=== PATIENT | male | born 2000 | race Caucasian/White ===

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

== ENCOUNTER 2020-08-24 06:12 | Day surgery (SDC) | payer OTHER ==
[2020-08-22 14:02] VITALS: BMI 24.9
[2020-08-24] MEDS ORDERED: BUPIVACAINE HCL 50 ML ONE (06:56)
[2020-08-24] MEDS ORDERED: BUPIVACAINE LIPOSOME/PF (EXPAREL) 266 MG/20 ML VIAL ONE (06:56)
[2020-08-24] MEDS ORDERED: MIDAZOLAM HCL 2 MG/2 ML SINGLE DOSE VIAL ONE ×2 (06:56→07:15)
[2020-08-24] MEDS ORDERED: PROPOFOL 20 ML ONE (07:15)
[2020-08-24] MEDS ORDERED: EPINEPHrine 1:1,000 1 MG/1 ML - 30ML VIAL (INJECTION) ONE (07:23)
[2020-08-24] MEDS ORDERED: ceFAZolin SODIUM 1 GM VIAL ONE ×2 (08:30→10:23)
[2020-08-24] MEDS ORDERED: HYDROmorphone HCL/PF 1 MG/ML VIAL ONE (08:38)
[2020-08-24] MEDS ORDERED: LIDOCAINE HCL/PF 2% SDV 5ML VIAL ONE (10:23)
[2020-08-24] MEDS ORDERED: DEXAMETHASONE SOD PHOSPHATE 4 MG/1 ML VIAL ONE (10:23)
[2020-08-24] MEDS ORDERED: TRANEXAMIC ACID 1000 MG/10 ML VIAL ONE (10:23)
[2020-08-24] MEDS ORDERED: ONDANSETRON 4 MG/2 ML VIAL ONE (10:23)
[2020-08-24] MEDS ORDERED: PROMETHAZINE HCL 25 MG/1 ML VIAL IVPUSH PRN (10:59)
[2020-08-24] MEDS ORDERED: oxyCODONE HCL 5 MG TABLET PO PRN (10:59)
[2020-08-24] MEDS ORDERED: ONDANSETRON 4 MG/2 ML VIAL IVPUSH PRN (10:59)
[2020-08-24] MEDS ORDERED: LACTATED RINGERS SOLUTION 1,000 ML IV SCH (11:00)
[2020-08-24] MEDS ORDERED: oxyCODONE HCL 5 MG TABLET ONE (12:16)
[2020-08-24 12:32] VITALS: TEMP 97.8
[2020-08-24 13:17] VITALS: BP 127/78; PULSE 82
== END 2020-08-24 13:19 | disposition home or self-care (01) ==
LOC: FASU 06:12
PROVIDERS: ATTEND Orthopaedic Surgery Sports Medicine
PROC: 0SBD4ZZ Excision of Left Knee Joint, Percutaneous Endoscopic Approach (ICD-10-PCS; 2020-08-24)
PROC: 0SBD4ZZ Excision of Left Knee Joint, Percutaneous Endoscopic Approach (ICD-10-PCS; 2020-08-24)
PROC: 0MRP47Z Replacement of Left Knee Bursa and Ligament with Autologous Tissue Substitute, Percutaneous Endoscopic Approach (ICD-10-PCS; principal; 2020-08-24 08:31)
PROC: 0LBR0ZZ Excision of Left Knee Tendon, Open Approach (ICD-10-PCS; 2020-08-24 08:31)
DX: S83.512A Sprain of anterior cruciate ligament of left knee, initial encounter (principal); S83.242A Other tear of medial meniscus, current injury, left knee, initial encounter; S83.282A Other tear of lateral meniscus, current injury, left knee, initial encounter; M65.9 Synovitis and tenosynovitis, unspecified; X58.XXXA Exposure to other specified factors, initial encounter; Y93.9 Activity, unspecified; Y92.9 Unspecified place or not applicable
CPT/HCPCS: 88304-TC; 94760